=== PATIENT | female | born 1940 | race Two or more races ===

== ENCOUNTER 2016-03-26 20:12 | Emergency (ER) | payer MEDICARE, MEDICAID ==
[~2016-03-26] VITALS: Ht 154.9 cm; Wt 63.5 kg
[~2016-03-26 20:12] MED LIST: ASPI-495 PO; CLOP75TA2 PO; HYDR100T27 PO; LOSA1TAB39 PO; NEBI5TAB8 PO; NIFE60TA9 PO; OMEP20CA10 PO; SIMV20TA6 PO; SITA100T PO
[2016-03-26 20:41] LABS: BASOPHILS # (AUTO) 0.1 /CMM (0.0-0.2); BASOPHILS % (AUTO) 0.5 % (0.0-2.0); DIFF TOTAL % 100 %; EOSINOPHILS # (AUTO) 0.4 /CMM (0.0-0.7); EOSINOPHILS % (AUTO) 3.4 % (0.0-6.0); HEMATOCRIT 34 % (33-45); HEMOGLOBIN 11.6 g/dL (11.5-14.8); LYMPHOCYTES # (AUTO) 2.2 /CMM (0.8-4.8); LYMPHOCYTES % (AUTO) 19.6 % (20.0-44.0); MEAN CORPUSCULAR HEMOGLOBIN 29 PG (26.0-33.0); MEAN CORPUSCULAR HGB CONC 34 g/dl (31.0-36.0); MEAN CORPUSCULAR VOLUME 85 fL (82-100); MONOCYTES % (AUTO) 8.7 % (2.0-12.0); NEUTROPHILS # (AUTO) 7.6 /CMM (1.8-8.9); NEUTROPHILS % (AUTO) 67.8 % (43.0-81.0); PLATELET COUNT (AUTO) 310 /CMM (150-450); RED BLOOD CELL COUNT(AUTO) 3.96 MIL/uL (4.0-5.2); WHITE BLOOD COUNT (AUTO) 11.3 K/uL (4.3-11.0)
[2016-03-26 20:50] LABS: ANION GAP 16 (5-14); CALCIUM, SERUM 8.7 mg/dL (8.5-10.1); CARBON DIOXIDE 23 mmol/L (21-32); CHLORIDE 106 mmol/L (98-107); CREATININE 1.4 mg/dL (0.6-1.3); GLUCOSE 75 mg/dL (74-106); SODIUM SERUM 141 mmol/L (136-145); UREA NITROGEN, BLOOD 23 mg/dL (7-18)
[2016-03-26 20:54] LABS: INR 1.07 (0.87-1.13); PROTHROMBIN TIME 11.2 SECS (9.5-12.7)
[2016-03-26 20:56] LABS: ALANINE AMINOTRANSFERASE 16 U/L (12-78); ALBUMIN 3.3 g/dL (3.4-5.0); ASPARTATE AMINOTRANSFERASE 13 U/L (15-37); BILIRUBIN,TOTAL 0.2 mg/dL (0.2-1.0); TOTAL PROTEIN, SERUM 7.4 g/dL (6.4-8.2)
[2016-03-26 20:57] LABS: INDIRECT BILIRUBIN 0.2 mg/dL (0.0-1.1)
[2016-03-26 20:58] LABS: TROPONIN I < 0.017 ng/mL (0.00-0.056)
[2016-03-26 22:21] VITALS: BP 140/72
== END 2016-03-26 22:22 | disposition left against medical advice (07) ==
LOC: ER 20:13 → EDBD 20:13 → ER 22:22
DX: R00.2 Palpitations (principal); I10 Essential (primary) hypertension; E11.9 Type 2 diabetes mellitus without complications; R79.1 Abnormal coagulation profile; Z90.49 Acquired absence of other specified parts of digestive tract; Z79.82 Long term (current) use of aspirin
CPT/HCPCS: 36415; 71010; 80048; 80076; 84484; 85025; 85730; 93005; 99285; A4606; Z7610

== ENCOUNTER 2016-08-04 17:01 | Inpatient (IN) | payer MEDICARE, MEDICAID ==
[~2016-08-04] VITALS: Ht 152.4 cm; Wt 70.8 kg
--- NOTE | 2016-08-04 17:14 | NUR ---
BIB DTR FROM FROM FOR CHEST PALPITATION X 2 WEEKS WORST TODAY. PATIENT IS AWAKE, ALERT AND VERBALLY RESPONSIVE, APPEARS IN NO APPARENT DISTRESS, RESPIRATION EVEN AND UNLABORED. SKIN IS WARM TO TOUCH AND NON DIAPHORETIC. PATIENT IS AFEBRILE. DENIES D/N/V. GOWNED PT AND PLACED ON TELE MONITOR. VSS. WILL CONT TO MONITOR
[2016-08-04] MEDS ORDERED: ASPIRIN 325 MG TABLET ONE (17:20)
[2016-08-04] MEDS ORDERED: NITROGLYCERIN PACKET 1 GM PACKET ONE (17:20)
[2016-08-04] MEDS ORDERED: ASPIRIN 325 MG TABLET PO ONE (17:30)
[2016-08-04] MEDS ORDERED: NITROGLYCERIN PACKET 1 GM PACKET TD ONE (17:30)
--- NOTE | 2016-08-04 17:30 | NUR ---
MEDICATED PTIENT ODERED
--- NOTE | 2016-08-04 17:33 | NUR ---
CALLED NURSING SUP. FOR TELE BED
[2016-08-04 17:35] LABS: HEMATOCRIT 31 % (33-45); HEMOGLOBIN 10.2 g/dL (11.5-14.8); LYMPHOCYTES % (AUTO) 22.1 % (20.0-44.0); MEAN CORPUSCULAR HEMOGLOBIN 28 PG (26.0-33.0); MEAN CORPUSCULAR HGB CONC 33 g/dl (31.0-36.0); MEAN CORPUSCULAR VOLUME 84 fL (82-100); NEUTROPHILS % (AUTO) 64.5 % (43.0-81.0); PLATELET COUNT (AUTO) 256 /CMM (150-450); RDW COEFFICIENT OF VARIATION 15.9 (11.5-15.0); RED BLOOD CELL COUNT(AUTO) 3.65 MIL/uL (4.0-5.2); WHITE BLOOD COUNT (AUTO) 8.1 K/uL (4.3-11.0)
[2016-08-04 17:36] LABS: BASOPHILS % (AUTO) 0.6 % (0.0-2.0); EOSINOPHILS # (AUTO) 0.2 /CMM (0.0-0.7); EOSINOPHILS % (AUTO) 2.6 % (0.0-6.0); LYMPHOCYTES # (AUTO) 1.8 /CMM (0.8-4.8); MONOCYTES # (AUTO) 0.8 /CMM (0.1-1.30); MONOCYTES % (AUTO) 10.2 % (2.0-12.0); NEUTROPHILS # (AUTO) 5.2 /CMM (1.8-8.9)
--- NOTE | 2016-08-04 17:38 | NUR ---
IV ACCESSED TO [facility]. BLOOD SAMPLE SENT TO LAB
[2016-08-04 17:50] LABS: CALCIUM, SERUM 8.1 mg/dL (8.5-10.1); CARBON DIOXIDE 23 mmol/L (21-32); CHLORIDE 105 mmol/L (98-107); CREATININE 1.5 mg/dL (0.6-1.3); GLUCOSE 209 mg/dL (74-106); POTASSIUM 4.6 mmol/L (3.5-5.1); SODIUM SERUM 138 mmol/L (136-145); UREA NITROGEN, BLOOD 27 mg/dL (7-18)
[2016-08-04 17:53] LABS: TROPONIN I < 0.017 ng/mL (0.00-0.056)
[2016-08-04 17:55] LABS: ALANINE AMINOTRANSFERASE 22 U/L (12-78); ALBUMIN 3.2 g/dL (3.4-5.0); ALKALINE PHOSPHATASE 62 U/L (46-116); ASPARTATE AMINOTRANSFERASE 12 U/L (15-37); BILIRUBIN,DIRECT 0.1 mg/dL (0.0-0.2); BILIRUBIN,TOTAL 0.2 mg/dL (0.2-1.0); TOTAL PROTEIN, SERUM 7.4 g/dL (6.4-8.2)
[2016-08-04] MEDS ORDERED: ALEN70TA45 PO (17:58)
[2016-08-04] MEDS ORDERED: INSU3INS6 SQ (17:58)
[2016-08-04] MEDS ORDERED: OLME20TA15 PO (17:58)
[2016-08-04] MEDS ORDERED: INSU100I4 SQ (17:58)
[2016-08-04] MEDS ORDERED: ESOM40CA PO (17:58)
[2016-08-04] MEDS ORDERED: AMLO10TA2 PO (17:58)
[2016-08-04] MEDS ORDERED: ATOR40TA PO (17:58)
[2016-08-04 18:03] LABS: INR 1.06 (0.87-1.13); PROTHROMBIN TIME 11.4 SECS (9.5-12.7)
--- NOTE | 2016-08-04 18:18 | NUR ---
REPORT GIVEN TO VÍCTOR NAM FOR DMITRY
--- NOTE | 2016-08-04 18:21 | NUR ---
Patient is resting comfortably in bed with eyes closed. Easily aroused. VSS
--- NOTE | 2016-08-04 19:09 | NUR ---
KATLYN PAGED, BLINDSTITCH LAPEL PADDER
--- NOTE | 2016-08-04 19:10 | NUR ---
REPORT GIVEN TO NURSE SOSA FOR DMITRY
--- NOTE | 2016-08-04 19:24 | NUR ---
Note kristen in EDM - 08/04/16 at 1927 by RICKY BREATHING TX FINISHED. PT IS SATURATING AT 97% ON RA. PT STILL SOUNDS TIGHT. AUDIBLE WHEEZES NOTED.
--- NOTE | 2016-08-04 19:26 | NUR ---
[facility] REPAGED
[2016-08-04 19:40] VITALS: BP 147/71
[2016-08-04 20:00] VITALS: BP 147/71
--- NOTE | 2016-08-04 20:00 | NUR ---
[employer] LEAD[employer] ADMITTING NOTES: ADMITTED A 89 YO FEMALE PATIENT WHO WAS BROUGHT TO UNIT VIA GURNEY AFTER BEING SEEN IN THE ER FOR DIZZINESS, WITH ADMITTING DX OF INTRACTABLE VERTIGO. PATIENT IS AOX4, PALESTINIAN SPEAKING, ON ROOM AIR, BREATHING EVEN AND UNLABORED. BREATH SOUNDS CLEAR TO AUSCULTATION. PIV OVER LFA G 20 INTACT AND PATENT TO FLUSH. PATIENT ONLY COMPLAINS OF 2/10 SLIGHT PRESSURE LIKE PAIN OVER CHEST AREA, NON RADIATING. PROVIDED FOR COMFORT AND SAFETY. ORIENTED TO UNIT. WILL CONT TO MONITOR.
[2016-08-04] MEDS ORDERED: FUROSEMIDE 20 MG/2 ML VIAL IV SCH (21:00)
[2016-08-04] MEDS ORDERED: ONDANSETRON HCL/PF 4 MG/2 ML VIAL IVP PRN (21:00)
[2016-08-04] MEDS ORDERED: ACETAMINOPHEN 325 MG TABLET PO PRN (21:00)
[2016-08-04] MEDS ORDERED: DEXTROSE 50%-WATER 50 ML DISP.SYRIN IV PRN (21:00)
[2016-08-04] MEDS ORDERED: MORPHINE SULFATE INJ 2 MG/ML DISP.SYRIN IV PRN (21:00)
[2016-08-04] MEDS ORDERED: ALBUTEROL FS 2.5 MG/3 ML VIAL.NEB NEB PRN (21:00)
[2016-08-04] MEDS: hydrALAZINE HCL 50 MG TABLET PO SCH (21:38)
[2016-08-04] MEDS: BLOOD SUGAR DIAGNOSTIC 1 EACH STRIP IN SCH (21:38)
[2016-08-04] MEDS: ATORVASTATIN 40 MG TABLET PO SCH (21:38)
[2016-08-04] MEDS ORDERED: INSULIN REGULAR, HUMAN 100 UNIT/ML 10 ML VIAL ONE (21:44)
[2016-08-04] MEDS ORDERED: INSULIN DETEMIR 100 UNIT/ML CARTRIDGE SQ ONE (21:45)
[2016-08-04] MEDS: INSULIN DETEMIR 100 UNIT/ML CARTRIDGE SQ SCH (21:53)
[2016-08-04] MEDS: INSULIN REGULAR, HUMAN 100 UNIT/ML 3 ML VIAL SQ PRN (22:05)
--- NOTE | 2016-08-04 22:21 | NUR ---
RN NOTES: PATIENT'S BLOOD SUGAR IS 222 MG/DL, ADMINISTERED HS LEVEMIR 15 UNITS AND 4 UNITS REGULAR INSULIN PER SCALE, PATIENT EATING DINNER.
[2016-08-05] VITALS (8 sets, daily range): BP systolic 119–152; BP diastolic 55–73
[2016-08-05] MEDS ORDERED: Z GUARD REMEDY 2 OZ OINT TP PRN (02:00)
[2016-08-05] MEDS ORDERED: hydrALAZINE HCL 50 MG TABLET ONE (04:55)
[2016-08-05] MEDS: hydrALAZINE HCL 50 MG TABLET PO SCH ×3 (05:56→22:13)
--- NOTE | 2016-08-05 06:46 | NUR ---
CARBON GRINDER CLOSING NOTES: PATIENT IN BED, AOX4, ON ROOM AIR, BREATHING EVEN AND UNLABORED. BREATH SOUNDS CLEAR TO AUSCULTATION. ON TELE MONITOR WITH SR AT RATE OF 80S WITH FIRST DEG AVB. PIV OVER LFA G20 INTACT AND PATENT TO FLUSH. BLOOD SUGAR CHECKED AT 221 MG/DL. PROVIDED FOR COMFORT AND SAFETY. NO ACUTE CHANGE IN CONDITION NOTED THROUGH SHIFT. WILL ENDORSE TO AM RN FOR DMITRY.
[2016-08-05] MEDS: BLOOD SUGAR DIAGNOSTIC 1 EACH STRIP IN SCH ×4 (06:52→22:13)
--- NOTE | 2016-08-05 07:05 | NUR ---
GORING CUTTER OPENING NOTES RECEIVED PT. FROM NIGHTSHIFT NURSE IN STABLE CONDITION. PT. IS AWAKE, AND LYING COMFORTABLY IN BED. A/O X3. NO SOB OR SIGNS OF DISTRESS NOTED. BREATHING IS EVEN AND UNLABORED. DENIES ANY CHEST PAIN AT THIS TIME. IV PRESENT ON LEFT FOREARM PATENT TP SALINE FLUSH AND INTACT. NO REDNESS OR INFILTRATION NOTED. BED IN LOW LOCKED POSITION, SIDE RAILS UP X2, CALL LIGTH WITHIN REACH. WILL CONTINUE TO MONITOR.
[2016-08-05 07:12] LABS: BASOPHILS % (AUTO) 0.5 % (0.0-2.0); EOSINOPHILS # (AUTO) 0.2 /CMM (0.0-0.7); EOSINOPHILS % (AUTO) 4.3 % (0.0-6.0); HEMATOCRIT 31 % (33-45); HEMOGLOBIN 10.2 g/dL (11.5-14.8); LYMPHOCYTES # (AUTO) 1.5 /CMM (0.8-4.8); LYMPHOCYTES % (AUTO) 25.5 % (20.0-44.0); MEAN CORPUSCULAR HEMOGLOBIN 28 PG (26.0-33.0); MEAN CORPUSCULAR HGB CONC 33 g/dl (31.0-36.0); MEAN CORPUSCULAR VOLUME 86 fL (82-100); MONOCYTES # (AUTO) 0.6 /CMM (0.1-1.30); MONOCYTES % (AUTO) 9.9 % (2.0-12.0); NEUTROPHILS # (AUTO) 3.5 /CMM (1.8-8.9); NEUTROPHILS % (AUTO) 59.8 % (43.0-81.0); PLATELET COUNT (AUTO) 244 /CMM (150-450); RDW COEFFICIENT OF VARIATION 15.9 (11.5-15.0); WHITE BLOOD COUNT (AUTO) 5.8 K/uL (4.3-11.0)
--- NOTE | 2016-08-05 07:30 | NUR ---
RN NOTES: PATIENT'S BLOOD SUGAR IS 221, HOWEVER, SINCE PATIENT IS ADMITTED WITH CHEST PAIN, MAINTAINED ON NPO AFTER MIDNIGHT. REGULAR INSULIN COVERAGE NOT YET GIVEN. ENDORSED BLOOD SUGAR TO VÍCTOR CLARK.
[2016-08-05 07:37] LABS: TROPONIN I < 0.017 ng/mL (0.00-0.056)
[2016-08-05 07:41] LABS: ALANINE AMINOTRANSFERASE 22 U/L (12-78); ALBUMIN 2.9 g/dL (3.4-5.0); ALKALINE PHOSPHATASE 58 U/L (46-116); ASPARTATE AMINOTRANSFERASE 14 U/L (15-37); B-TYPE NATRIURETIC PEPTIDE 1140 PG/ML (0-125); BILIRUBIN,TOTAL 0.2 mg/dL (0.2-1.0); CALCIUM, SERUM 8.1 mg/dL (8.5-10.1); CARBON DIOXIDE 25 mmol/L (21-32); CHLORIDE 109 mmol/L (98-107); CREATININE 1.4 mg/dL (0.6-1.3); GLUCOSE 216 mg/dL (74-106); MAGNESIUM 2.1 mg/dL (1.8-2.4); PHOSPHORUS 3.3 mg/dL (2.5-4.9); POTASSIUM 4.8 mmol/L (3.5-5.1); SODIUM SERUM 143 mmol/L (136-145); TOTAL PROTEIN, SERUM 6.9 g/dL (6.4-8.2); UREA NITROGEN, BLOOD 26 mg/dL (7-18)
[2016-08-05 08:23] LABS: IRON, SERUM 94 ug/dl (50-175); TOTAL IRON BINDING CAPACITY 249 ug/dl (250-450)
[2016-08-05 08:26] LABS: CHOLESTEROL 185 mg/dL (<200); HDL CHOLESTEROL 43 mg/dL (40-60); LDL 95 mg/dL (0-99); THYROID STIMULATING HORMONE 3.262 uIU/mL (0.358-3.74); TRIGLYCERIDES 300 mg/dL (30-150)
[2016-08-05] MEDS: AMLODIPINE BESYLATE 10 MG TABLET PO SCH (08:54)
[2016-08-05] MEDS: ASPIRIN EC 81 MG TABLET.DR PO SCH (08:54)
[2016-08-05] MEDS: PANTOPRAZOLE 40 MG TABLET.DR PO SCH (08:55)
[2016-08-05] MEDS: CLOPIDOGREL BISULFATE 75 MG TABLET PO SCH (08:55)
[2016-08-05] MEDS: LINAGLIPTIN 5 MG TABLET PO SCH (08:55)
[2016-08-05] MEDS: INSULIN REGULAR, HUMAN 100 UNIT/ML 3 ML VIAL SQ PRN ×4 (08:57→22:20)
[2016-08-05] MEDS ORDERED: FUROSEMIDE 20 MG/2 ML VIAL IV SCH (09:00)
[2016-08-05] MEDS: FUROSEMIDE 40 MG/4 ML VIAL IV SCH ×3 (09:42→17:34)
--- NOTE | 2016-08-05 18:50 | NUR ---
SHRIMP PACKER CLOSING NOTES PT. IN STABLE CONDITION. NO ACUTE CHANGES IN CONDITION DURING SHIFT. DENIES ANY CHEST PAIN AT THIS TIME. ON TELE MONITOR WITH SR, 1ST DEGREE AV BLOCK, HR 85. ALL NEEDS MET DURING SHIFT ALL ORDERS CARRIED OUT ACCORDINGLY. WILL ENDORSE TO NIGHTSHIFT NURSE FOR DMITRY
--- NOTE | 2016-08-05 19:30 | NUR ---
RN NOTES RECEIVED PT AWAKE ON BED FAMILY AT BEDSIDE, A/OX3, TAJIK SPEAKING , SR WITH 1ST AV BLOCK, DENIES PAIN, NO SOB, CALL LIGHT WITHIN REACH, SIDERAILS UPX2 CONTINUE TO MONITOR
[2016-08-05] MEDS: ATORVASTATIN 40 MG TABLET PO SCH (22:14)
[2016-08-05] MEDS: INSULIN DETEMIR 100 UNIT/ML CARTRIDGE SQ SCH (22:19)
[2016-08-06] VITALS: BP 117/60
[2016-08-06 04:00] VITALS: BP 125/66
[2016-08-06] MEDS: hydrALAZINE HCL 50 MG TABLET PO SCH ×2 (05:00→12:16)
--- NOTE | 2016-08-06 05:52 | NUR ---
RN NOTES BLOOD SUGAR- 205 NO INSULIN COVERAGE GIVEN PT IS NPO
[2016-08-06 06:40] LABS: BASOPHILS % (AUTO) 0.2 % (0.0-2.0); EOSINOPHILS # (AUTO) 0.3 /CMM (0.0-0.7); EOSINOPHILS % (AUTO) 4.5 % (0.0-6.0); HEMATOCRIT 33 % (33-45); HEMOGLOBIN 11.3 g/dL (11.5-14.8); LYMPHOCYTES # (AUTO) 1.6 /CMM (0.8-4.8); MEAN CORPUSCULAR HEMOGLOBIN 29 PG (26.0-33.0); MEAN CORPUSCULAR HGB CONC 34 g/dl (31.0-36.0); MEAN CORPUSCULAR VOLUME 84 fL (82-100); MONOCYTES # (AUTO) 0.7 /CMM (0.1-1.30); MONOCYTES % (AUTO) 9.8 % (2.0-12.0); NEUTROPHILS # (AUTO) 4.4 /CMM (1.8-8.9); NEUTROPHILS % (AUTO) 62.5 % (43.0-81.0); PLATELET COUNT (AUTO) 275 /CMM (150-450); RDW COEFFICIENT OF VARIATION 15.5 (11.5-15.0); RED BLOOD CELL COUNT(AUTO) 3.96 MIL/uL (4.0-5.2); WHITE BLOOD COUNT (AUTO) 7.1 K/uL (4.3-11.0)
--- NOTE | 2016-08-06 07:00 | NUR ---
RN NOTES AWAKE DENIES PAIN, NO SOB
[2016-08-06 07:09] LABS: ALANINE AMINOTRANSFERASE 20 U/L (12-78); ALKALINE PHOSPHATASE 62 U/L (46-116); ASPARTATE AMINOTRANSFERASE 13 U/L (15-37); BILIRUBIN,TOTAL 0.2 mg/dL (0.2-1.0); CALCIUM, SERUM 8.9 mg/dL (8.5-10.1); CARBON DIOXIDE 25 mmol/L (21-32); CHLORIDE 102 mmol/L (98-107); CREATININE 1.5 mg/dL (0.6-1.3); GLUCOSE 211 mg/dL (74-106); MAGNESIUM 1.8 mg/dL (1.8-2.4); PHOSPHORUS 4.3 mg/dL (2.5-4.9); POTASSIUM 4.2 mmol/L (3.5-5.1); SODIUM SERUM 139 mmol/L (136-145); TOTAL PROTEIN, SERUM 7.3 g/dL (6.4-8.2); UREA NITROGEN, BLOOD 32 mg/dL (7-18)
[2016-08-06 07:18] LABS: TROPONIN I < 0.017 ng/mL (0.00-0.056)
[2016-08-06] MEDS: PANTOPRAZOLE 40 MG TABLET.DR PO SCH (07:30)
--- NOTE | 2016-08-06 07:30 | NUR ---
TRUCK RENTAL MANAGER AM NOTES PT IN BED, A/O X3. ON RA, NO SOB OR SIGNS OF DISTRESS NOTED. BREATHING IS EVEN AND UNLABORED. TELEMETRY READS SR IST DEG AVB HR 85, DENIES ANY CHEST PAIN AT THIS TIME. LEFT FA 20G FLUSHES WELL, SITE CLEAR. AMBULATORY, SEE NURSING FLOWSHEET FOR SKIN ISSUES. NPO FOR LEXISCAN TODAY. BED IN LOW LOCKED POSITION, SIDE RAILS UP X2, CALL LIGHT WITHIN REACH. WILL CONTINUE TO MONITOR.
[2016-08-06 08:00] VITALS: BP 130/69
[2016-08-06] MEDS: BLOOD SUGAR DIAGNOSTIC 1 EACH STRIP IN SCH ×2 (08:38→12:14)
[2016-08-06] MEDS: CLOPIDOGREL BISULFATE 75 MG TABLET PO SCH (08:39)
[2016-08-06] MEDS: AMLODIPINE BESYLATE 10 MG TABLET PO SCH (08:39)
[2016-08-06] MEDS: LINAGLIPTIN 5 MG TABLET PO SCH (08:39)
[2016-08-06] MEDS: ASPIRIN EC 81 MG TABLET.DR PO SCH (08:40)
--- NOTE | 2016-08-06 08:42 | NUR ---
PROJECT MANAGEMENT ADVISOR NOTES ACCUCHECK. BS 247 MG/DL. NO INSULIN GIVEN. PT IS NPO.
[2016-08-06] MEDS ORDERED: REGADENOSON 0.4 MG/5 ML DISP.SYRIN IVP ONE (09:00)
--- NOTE | 2016-08-06 09:30 | NUR ---
QUARRY PLUG AND FEATHER DRILLER NOTES BACK FROM [facility]. ADMINISTERED DUE MEDS.
[2016-08-06] MEDS ORDERED: FUROSEMIDE 40 MG TABLET PO SCH (10:00)
--- NOTE | 2016-08-06 12:23 | NUR ---
RUBBER WORKER NOTES ACCUCHECK. BS 349 MG/DL. ADMINISTERED 10 UNITSHUM R PER SLIDING SCALE.
[2016-08-06] MEDS: INSULIN REGULAR, HUMAN 100 UNIT/ML 3 ML VIAL SQ PRN (12:26)
[2016-08-06 16:30] VITALS: BP 128/79
--- NOTE | 2016-08-06 16:34 | NUR ---
HOOKER MACHINE TENDER DC NOTES PATIENT SEEN BY DR. SANTANA TODAY. DISCHARGED TO HOME PER MD IN STABLE CONDITION. PROVIDED DC INSTRUCTIONS, MED RECON LIST AND HEALTH TEACHINGS, IV ACCESS ON LEFT AC REMOVED, NO BLEEDING, DRESSING IN PLACE. ALL BELONGINGS CHECKED AND RETURNED. ALL PAPER WORKS SIGNED. PT TO FOLLOW UP WITH PCP IN 1-2 WEEKS AND WILL MAKE OWN APPOINTMENT. ACCOMPANIED BY DAUGHTER AND NATALIE FAYE TO [facility]. WILL BE TRANSPORTED TO HOME VIA PRIVATE CAR.
== END 2016-08-06 16:40 | disposition home or self-care (01) | DRG 291 ==
LOC: ER 17:03 → TELE 18:48
PROVIDERS: ADMIT Nurse Practitioner Acute Care; ATTEND Nurse Practitioner Acute Care
DX: I11.0 Hypertensive heart disease with heart failure (principal); N17.0 Acute kidney failure with tubular necrosis; I50.31 Acute diastolic (congestive) heart failure; I25.10 Atherosclerotic heart disease of native coronary artery without angina pectoris; K21.9 Gastro-esophageal reflux disease without esophagitis; E66.9 Obesity, unspecified; Z68.30 Body mass index [BMI] 30.0-30.9, adult; Z79.899 Other long term (current) drug therapy; Z90.49 Acquired absence of other specified parts of digestive tract; E11.65 Type 2 diabetes mellitus with hyperglycemia; D64.9 Anemia, unspecified
CPT/HCPCS: 36415; 71010-TC; 80048-TC; 80053-TC; 80061-TC; 80076-TC; 82728-TC; 82962-TC; 83540-TC; 83735-TC; 83880; 84100-TC; 84439-TC; 84443-TC; 84484-TC; 85025-TC; 85730-TC; 87081-TC; 93307-TC; 97001-TC; A4606; A9502; J1815; J1940; J2785; Z7610

== ENCOUNTER 2016-12-08 18:12 | Emergency (ER) | payer MEDICARE, MEDICAID ==
[~2016-12-08] VITALS: Ht 149.9 cm; Wt 72.6 kg
[~2016-12-08 18:12] MED LIST changes: +ALEN70TA45 PO; +AMLO10TA2 PO; +ATOR40TA PO; +ESOM40CA PO; +INSU100I4 SQ; +INSU3INS6 SQ; -LOSA1TAB39 PO; -NEBI5TAB8 PO; -NIFE60TA9 PO; +OLME20TA15 PO; -OMEP20CA10 PO; -SIMV20TA6 PO
--- NOTE | 2016-12-08 18:15 | NUR ---
BIB DAUGHTER, PT SENT FROM A CLINIC FOR HYPERTENSION AND HYPERGLYCEMIA 230MG/DL INSEAMER. NAD NOTED, VSS, RESP EVEN AND UNLABORED. WAITING FOR MD LOWE.
--- NOTE | 2016-12-08 18:30 | NUR ---
NEW IV STARTED ON R. WRIST, 20 G. BLOOD DRAWN AND SENT TO LAB.
[2016-12-08] MEDS ORDERED: CLONIDINE HCL 0.1 MG TABLET ONE (18:57)
[2016-12-08] MEDS ORDERED: CLONIDINE HCL 0.1 MG TABLET PO ONE (19:00)
[2016-12-08 19:05] LABS: BASOPHILS # (AUTO) 0.4 /CMM (0.0-0.2); BASOPHILS % (AUTO) 3.9 % (0.0-2.0); EOSINOPHILS # (AUTO) 0.3 /CMM (0.0-0.7); EOSINOPHILS % (AUTO) 2.6 % (0.0-6.0); HEMATOCRIT 32 % (33-45); HEMOGLOBIN 10.9 g/dL (11.5-14.8); LYMPHOCYTES # (AUTO) 2.4 /CMM (0.8-4.8); LYMPHOCYTES % (AUTO) 23.2 % (20.0-44.0); MEAN CORPUSCULAR HEMOGLOBIN 29 PG (26.0-33.0); MEAN CORPUSCULAR HGB CONC 34 g/dl (31.0-36.0); MEAN CORPUSCULAR VOLUME 85 fL (82-100); MONOCYTES # (AUTO) 0.8 /CMM (0.1-1.30); MONOCYTES % (AUTO) 7.5 % (2.0-12.0); NEUTROPHILS # (AUTO) 6.3 /CMM (1.8-8.9); NEUTROPHILS % (AUTO) 62.8 % (43.0-81.0); PLATELET COUNT (AUTO) 283 /CMM (150-450); RDW COEFFICIENT OF VARIATION 13.8 (11.5-15.0); WHITE BLOOD COUNT (AUTO) 10.2 K/uL (4.3-11.0)
[2016-12-08 19:27] LABS: CARBON DIOXIDE 24 mmol/L (21-32); CHLORIDE 107 mmol/L (98-107); CREATININE 1.4 mg/dL (0.6-1.3); GLUCOSE 206 mg/dL (74-106); POTASSIUM 5.1 mmol/L (3.5-5.1); SODIUM SERUM 141 mmol/L (136-145); UREA NITROGEN, BLOOD 31 mg/dL (7-18)
[2016-12-08] MEDS ORDERED: hydrALAZINE HCL IV 20 MG VIAL IV ONE (20:00)
[2016-12-08] MEDS ORDERED: hydrALAZINE HCL IV 20 MG VIAL ONE (20:08)
[2016-12-08 20:31] VITALS: BP 165/63
== END 2016-12-08 20:34 | disposition home or self-care (01) ==
LOC: ER 18:13
DX: I10 Essential (primary) hypertension (principal); E11.65 Type 2 diabetes mellitus with hyperglycemia; E78.00 Pure hypercholesterolemia, unspecified; I11.0 Hypertensive heart disease with heart failure; I50.9 Heart failure, unspecified; N28.9 Disorder of kidney and ureter, unspecified; Z79.4 Long term (current) use of insulin; Z79.82 Long term (current) use of aspirin
CPT/HCPCS: 36415; 80048; 82962; 85025; 96374; 99284; A4606; J0360; Z7610

== ENCOUNTER 2017-02-25 14:47 | Emergency (ER) | payer MEDICARE, MEDICAID ==
[~2017-02-25] VITALS: Ht 152.4 cm; Wt 81.6 kg
[~2017-02-25 14:47] MED LIST changes: +CLOP75TA15 PO; -CLOP75TA2 PO; -OLME20TA15 PO; +OLME20TA21 PO
[2017-02-25 14:50] VITALS: BP 189/76
== END 2017-02-25 15:11 | disposition home or self-care (01) ==
LOC: ER 14:53
DX: I11.0 Hypertensive heart disease with heart failure (principal); I50.9 Heart failure, unspecified; E11.9 Type 2 diabetes mellitus without complications; Z90.49 Acquired absence of other specified parts of digestive tract; Z79.4 Long term (current) use of insulin; Z79.82 Long term (current) use of aspirin
CPT/HCPCS: 99281; A4606; Z7502; Z7610

== ENCOUNTER 2017-08-05 09:11 | Inpatient (IN) | payer MEDICARE, MEDICAID ==
[~2017-08-05] VITALS: Ht 149.9 cm; Wt 68.9 kg
[~2017-08-05 09:11] MED LIST changes: -AMLO10TA2 PO; +AMLO10TA6 PO; +OLME20TA13 PO; -OLME20TA21 PO
--- NOTE | 2017-08-05 09:40 | NUR ---
PATIENT TO ED DT HIGH BLOOD PRESSURE X 7 DAYS. PATIENT IS AWAKE AND ALERT, APPEARS IN NO DISTRESS. RESPIRATION EVEN AND UNLABORED. SKIN IS WARM TO TOUCH AND NON DIAPHORETIC. AFEBRILE. VSS. NO CHEST PAIN.
[2017-08-05] MEDS ORDERED: hydrALAZINE HCL IV 20 MG VIAL ONE (09:49)
[2017-08-05] MEDS ORDERED: ASPIRIN 325 MG TABLET ONE (09:50)
[2017-08-05] MEDS ORDERED: NITROGLYCERIN PACKET 1 GM PACKET ONE (09:50)
[2017-08-05] MEDS ORDERED: NITROGLYCERIN PACKET 1 GM PACKET TD ONE (10:00)
[2017-08-05] MEDS ORDERED: ASPIRIN 325 MG TABLET PO ONE (10:00)
[2017-08-05] MEDS ORDERED: hydrALAZINE HCL IV 20 MG VIAL IV ONE (10:00)
[2017-08-05 10:01] LABS: BASOPHILS % (AUTO) 0.4 % (0.0-2.0); EOSINOPHILS % (AUTO) 3.3 % (0.0-6.0); HEMATOCRIT 35 % (33-45); HEMOGLOBIN 11.9 g/dL (11.5-14.8); LYMPHOCYTES # (AUTO) 1.7 /CMM (0.8-4.8); MEAN CORPUSCULAR HGB CONC 34 g/dl (31.0-36.0); MEAN CORPUSCULAR VOLUME 84 fL (82-100); MONOCYTES # (AUTO) 0.5 /CMM (0.1-1.30); MONOCYTES % (AUTO) 6.9 % (2.0-12.0); NEUTROPHILS # (AUTO) 5.4 /CMM (1.8-8.9); NEUTROPHILS % (AUTO) 68.4 % (43.0-81.0); PLATELET COUNT (AUTO) 272 /CMM (150-450); RED BLOOD CELL COUNT(AUTO) 4.21 MIL/uL (4.0-5.2); WHITE BLOOD COUNT (AUTO) 7.9 K/uL (4.3-11.0)
[2017-08-05] MEDS ORDERED: METO100T7 PO (10:04)
[2017-08-05] MEDS ORDERED: LOSA1TAB39 PO (10:04)
[2017-08-05 10:15] LABS: INR 1.03 (0.87-1.13)
--- NOTE | 2017-08-05 10:17 | NUR ---
panel on-call paged
[2017-08-05 10:19] LABS: ALANINE AMINOTRANSFERASE 15 U/L (12-78); ALBUMIN 3.2 g/dL (3.4-5.0); ALKALINE PHOSPHATASE 53 U/L (46-116); ASPARTATE AMINOTRANSFERASE 14 U/L (15-37); BILIRUBIN,DIRECT 0.1 mg/dL (0.0-0.2); BILIRUBIN,TOTAL 0.3 mg/dL (0.2-1.0); CALCIUM, SERUM 8.7 mg/dL (8.5-10.1); CARBON DIOXIDE 23 mmol/L (21-32); CHLORIDE 105 mmol/L (98-107); CREATININE 1.2 mg/dL (0.6-1.3); GLUCOSE 179 mg/dL (74-106); POTASSIUM 4.3 mmol/L (3.5-5.1); SODIUM SERUM 137 mmol/L (136-145); TOTAL PROTEIN, SERUM 7.3 g/dL (6.4-8.2); UREA NITROGEN, BLOOD 24 mg/dL (7-18)
[2017-08-05 10:20] LABS: TROPONIN I < 0.017 ng/mL (0.00-0.056)
[2017-08-05] MEDS ORDERED: DEXTROSE 50%-WATER 50 ML DISP.SYRIN IV PRN (11:00)
[2017-08-05] MEDS ORDERED: hydrALAZINE HCL IV 20 MG VIAL IV PRN (11:00)
[2017-08-05] MEDS ORDERED: HYDROCODONE/APAP 5/325MG 1 EACH TABLET PO PRN (11:00)
[2017-08-05] MEDS ORDERED: ZOLPIDEM TARTRATE 5 MG TABLET PO PRN (11:00)
[2017-08-05] MEDS ORDERED: MORPHINE SULFATE INJ 4 MG/ML DISP.SYRIN IV PRN (11:00)
[2017-08-05] MEDS ORDERED: ACETAMINOPHEN 325 MG TABLET PO PRN (11:00)
[2017-08-05] MEDS ORDERED: MAGNESIUM HYDROXIDE 30 ML UDC PO PRN (11:00)
[2017-08-05] MEDS ORDERED: MAG HYDROX/AL HYDROX/SIMETH 30 ML UDC PO PRN (11:00)
[2017-08-05] MEDS ORDERED: *INSULIN REGULAR(HUMULIN R)HUM 100 UNIT/ML VIAL SQ PRN (11:00)
[2017-08-05] MEDS ORDERED: Z GUARD REMEDY 2 OZ OINT TP PRN (11:00)
[2017-08-05] MEDS ORDERED: ONDANSETRON HCL/PF 4 MG/2 ML VIAL IVP PRN (11:00)
[2017-08-05] MEDS ORDERED: CLONIDINE HCL 0.1 MG TABLET PO PRN (11:00)
[2017-08-05 11:06] VITALS: BP 139/67
--- NOTE | 2017-08-05 11:07 | NUR ---
PATIENT TRANSPORTED TO TELE.S
--- NOTE | 2017-08-05 11:10 | NUR ---
GALLEY STRIPPER NOTES RECIEVED PT FROM ER VIA [place], SARITHA HTN URGENCY BY DR. HAMMER, AAO X 3, FINNISH SPEAKING, BASIA RA, NOT IN ANY DISTRESS, DENIES PAIN, TELEMETRY READS SR HR 60, RT WRIST G20 IVHL, FLUSHES WELL, SITE CLEAR, NO SKIN ISSUES, AMBULATES WITH ASSIST, DAUGHTER AT BEDSIDE, CARDIAC/DIABETIC DIET, UNIT ORIENTATION DONE AND USE OF CALL LIGHT, BED LOW LOCKED, SAFETY MEASURES IN PLACE, NEEDS ANTICIPATED. WILL CONT TO MONITOR.
[2017-08-05 12:00] VITALS: BP 136/58
[2017-08-05] MEDS ORDERED: NITROGLYCERIN 30 GM TUBE TOP SCH ×2 (12:00→17:00)
[2017-08-05] MEDS: BLOOD SUGAR DIAGNOSTIC 1 EACH STRIP VI SCH ×3 (12:04→21:29)
--- NOTE | 2017-08-05 12:05 | NUR ---
STRINGER MACHINE TENDER NOTES ACCUCHECK DONE. BS 164 MG/DL. 3 UNITS HUM R PER SS GIVEN.
[2017-08-05] MEDS: hydrALAZINE HCL 50 MG TABLET PO SCH ×2 (12:42→16:56)
[2017-08-05] MEDS: VALSARTAN 80 MG TABLET PO SCH (12:42)
[2017-08-05] MEDS: ENOXAPARIN SODIUM 30 MG/0.3 ML DISP.SYRIN SQ SCH (12:43)
[2017-08-05] MEDS: INSULIN REGULAR, HUMAN 100 UNIT/ML 3 ML VIAL SQ PRN ×2 (12:46→17:03)
[2017-08-05 16:00] VITALS: BP_SYST 115; BP_SYST 129; BP_DIAS 55; BP_DIAS 63
[2017-08-05] MEDS: METOPROLOL SUCCINATE 50 MG TAB.SR.24H PO SCH (16:57)
--- NOTE | 2017-08-05 17:00 | NUR ---
BIOLOGICAL AIDE NOTES ACCUCHECK DONE. BS 152 MG/DL. 2 UNITS HUM R PER SS GIVEN.
--- NOTE | 2017-08-05 19:15 | NUR ---
PER DIEM NURSE CLOSING NOTES PT RESTING COMFORTABLY IN BED, AAO X 3, CYMRO SPEAKING, ON RA, NOT IN ANY DISTRESS, DENIES PAIN, TELEMETRY READS SR HR 68, RT WRIST G20 IVHL, FLUSHES WELL, SITE CLEAR, NO SKIN ISSUES, AMBULATES WITH ASSIST, DAUGHTER AT BEDSIDE, CARDIAC/DIABETIC DIET, UNIT ORIENTATION DONE AND USE OF CALL LIGHT, BED LOW LOCKED, SAFETY MEASURES IN PLACE, ALL NEEDS MET. NO OTHER SIGNIFICANT CHANGE IN CONDITION. ENDORSED TO NEXT SHIFT FOR DMITRY.
[2017-08-05 20:00] VITALS: BP_SYST 147; BP_DIAS 57; BP_DIAS 66
[2017-08-05] MEDS: ATORVASTATIN 40 MG TABLET PO SCH (21:29)
[2017-08-06] VITALS: BP 126/72
[2017-08-06 04:04] VITALS: BP 122/45
[2017-08-06 06:18] LABS: BASOPHILS % (AUTO) 0.2 % (0.0-2.0); EOSINOPHILS % (AUTO) 2.1 % (0.0-6.0); HEMATOCRIT 32 % (33-45); LYMPHOCYTES # (AUTO) 1.7 /CMM (0.8-4.8); LYMPHOCYTES % (AUTO) 21.5 % (20.0-44.0); MEAN CORPUSCULAR HGB CONC 34 g/dl (31.0-36.0); MEAN CORPUSCULAR VOLUME 85 fL (82-100); MONOCYTES # (AUTO) 0.5 /CMM (0.1-1.30); MONOCYTES % (AUTO) 6.9 % (2.0-12.0); NEUTROPHILS # (AUTO) 5.3 /CMM (1.8-8.9); NEUTROPHILS % (AUTO) 69.3 % (43.0-81.0); PLATELET COUNT (AUTO) 249 /CMM (150-450); RDW COEFFICIENT OF VARIATION 15.5 (11.5-15.0); RED BLOOD CELL COUNT(AUTO) 3.81 MIL/uL (4.0-5.2); WHITE BLOOD COUNT (AUTO) 7.7 K/uL (4.3-11.0)
[2017-08-06 06:40] LABS: CHOLESTEROL 201 mg/dL (<200); HDL CHOLESTEROL 71 mg/dL (40-60); LDL 99 mg/dL (0-99); TRIGLYCERIDES 544 mg/dL (30-150)
[2017-08-06 06:47] LABS: TROPONIN I < 0.017 ng/mL (0.00-0.056)
[2017-08-06 06:48] LABS: ALANINE AMINOTRANSFERASE 15 U/L (12-78); ALBUMIN 2.7 g/dL (3.4-5.0); ALKALINE PHOSPHATASE 46 U/L (46-116); ASPARTATE AMINOTRANSFERASE 10 U/L (15-37); BILIRUBIN,TOTAL 0.2 mg/dL (0.2-1.0); CALCIUM, SERUM 8.6 mg/dL (8.5-10.1); CARBON DIOXIDE 27 mmol/L (21-32); CHLORIDE 104 mmol/L (98-107); CREATININE 1.2 mg/dL (0.6-1.3); GLUCOSE 207 mg/dL (74-106); MAGNESIUM 1.6 mg/dL (1.8-2.4); PHOSPHORUS 3.6 mg/dL (2.5-4.9); POTASSIUM 4.2 mmol/L (3.5-5.1); SODIUM SERUM 137 mmol/L (136-145); TOTAL PROTEIN, SERUM 6.4 g/dL (6.4-8.2); UREA NITROGEN, BLOOD 33 mg/dL (7-18)
--- NOTE | 2017-08-06 07:28 | NUR ---
RN NOTES RECEIVED PT FROM HUMAN FACTORS ERGONOMIST, A&0X3, PRIMARILY UPPER SORBIAN SPEAKING. ON ROOM AIR NO SOB OR DISTRESS NOTED. SR ON THE TELE KE[place] HR 77. R WRIST 20G IV SITE INTACT NO IVF. BED LOCKED AND IN LOWEST POSITION, CALL LIGHT WITHIN REACH, SIDE RAILS UPX3, WILL CONT TO [place].
[2017-08-06] MEDS: INSULIN REGULAR, HUMAN 100 UNIT/ML 3 ML VIAL SQ PRN ×3 (07:56→17:31)
[2017-08-06 08:00] VITALS: BP 172/60
[2017-08-06] MEDS: BLOOD SUGAR DIAGNOSTIC 1 EACH STRIP VI SCH ×4 (08:17→21:00)
[2017-08-06] MEDS: hydrALAZINE HCL 50 MG TABLET PO SCH ×3 (08:18→16:21)
[2017-08-06] MEDS: METOPROLOL SUCCINATE 50 MG TAB.SR.24H PO SCH ×2 (08:18→16:21)
[2017-08-06] MEDS: VALSARTAN 80 MG TABLET PO SCH (08:19)
[2017-08-06] MEDS: ASPIRIN EC 81 MG TABLET.DR PO SCH (08:19)
[2017-08-06] MEDS: CLOPIDOGREL BISULFATE 75 MG TABLET PO SCH (08:20)
[2017-08-06] MEDS: ENOXAPARIN SODIUM 30 MG/0.3 ML DISP.SYRIN SQ SCH (08:21)
[2017-08-06] MEDS: ISOSORBIDE DINITRATE (20MG) 20 MG TABLET PO SCH ×2 (08:24→16:21)
[2017-08-06 08:38] LABS: IRON, SERUM 45 ug/dl (50-175); TOTAL IRON BINDING CAPACITY 238 ug/dl (250-450)
[2017-08-06 08:55] LABS: FERRITIN 19 ng/mL (8-388)
[2017-08-06] MEDS ORDERED: LOSARTAN/HCTZ 50-12.5MG/ 1 EA TABLET PO SCH (09:00)
[2017-08-06] MEDS ORDERED: METOPROLOL SUCCINATE 50 MG TAB.SR.24H PO SCH (09:00)
[2017-08-06] MEDS: Magnesium 1GM/D5W 100ML PREMIX 100 ML IV SCH ×2 (09:11→10:08)
[2017-08-06 12:00] VITALS: BP 140/58
[2017-08-06 16:00] VITALS: BP 159/64
--- NOTE | 2017-08-06 16:03 | NUR ---
Patient speaks Dutch,she is alert and pleasant.She lives at home with family.She is ambulatory and semi-independent with adl's. Has good family support and daughter can provide ride when discharge. Addendum: 08/06/17 at 1603 by BHARATHI NEAL RN Amended: Links added.
[2017-08-06] MEDS ORDERED: METFORMIN 500 MG TABLET PO SCH (17:00)
[2017-08-06] MEDS ORDERED: METF-440 PO (17:30)
--- NOTE | 2017-08-06 17:40 | NUR ---
MS RN NOTES RECEIVED REPORT FROM DELTA RENEE. PATIENT RECEIVED RESTING INSIDE ROOM AWAKE, ALERT AND ORIENTED. VERBALLY RESPONSIVE AND RESPONDS TO VERBAL AND TACTILE STIMULI. BREATHING EVEN AND UNLABORED. NO SOB OR ACUTE DISTRESS NOTED. PATIENT DENIES ANY PAIN OR DISCOMFORT. PATIENT FOR NUCLEAR MED KIDNEY FLOW FUNCTION. NUCLEAR MEDICINE AWARE, AWAITING FOR PATIENT TO BE PICKED-UP. DAUGHTER AT BEDSIDE. WILL CONTINUE TO MONITOR. BED LOCKED AND IN LOW POSITION. BILATERAL UPPER SIDE RAILS UP AND LOCKED. CALL LIGHT WITHIN EASY REACH
--- NOTE | 2017-08-06 17:41 | NUR ---
RN NOTES CONSENT RECEIVED FROM DAUGHTER EVER FOR NUCLEAR MED SCAN. REPORT GIVEN TO RN FOR CONTINUITY OF CARE.
--- NOTE | 2017-08-06 18:47 | NUR ---
MS RN NOTES PATIENT RESTING INSIDE ROOM, AWAKE, ALERT AND ORIENTED X 4, VERBALLY RESPONSIVE AND RESPONDS TO VERBAL AND TACTILE STIMULI. BREATHING EVEN AND UNLABORED. NO SOB OR ACUTE DISTRESS NOTED. NO CHANGES IN LOC NOTED. PATIENT AFEBRILE, SKIN DRY AND WARM TO TOUCH. WAITING FOR NUCLEAR MEDICINE FOR PICK-UP, FILIBERTO FROM [place] AWARE. FAMILY AT BEDSIDE, PATIENT MADE AWARE AND VERBALIZED UNDERSTANDING. WILL ENDORSE TO INCOMING SHIFT FOR DMITRY. BED LOCKED AND IN LOW POSITION. BILATERAL UPPER SIDE RAILS UP AND LOCKED. CALL LIGHT WITHIN EASY REACH
--- NOTE | 2017-08-06 19:30 | NUR ---
RN NOTES: -RECEIVED ENDORSEMENT FROM YANA(RN) PATIENT IS FOR TRANSFER IN [facility] 2ND FLOOR ROOM 205-1. -AT AROUND 2100 PATIENT WAS SEND TO NUCLEAR MEDICINE DEPARTMENT FOR KIDNEY IMAGE SCAN. -ZORAIDA(RN/MARY0 SPOKE WITH FILIBERTO THEY WILL SEND THE PATIENT TO [facility]-2 AFTER THE PROCEDURE.
--- NOTE | 2017-08-06 20:02 | NUR ---
RN NOTES: GIVEN REPORT TO JOHANN(RN), ENDORSED PATIENT MEDICATION AND BELONGING.
[2017-08-06 20:45] VITALS: BP 163/70
--- NOTE | 2017-08-06 20:45 | NUR ---
MS RN NOTE: PATIENT BACK FROM NUCLEAR MEDICINE SCAN OF KIDNEYS. NO ACUTE DISTRESS NOTED. BREATHING EVEN AND UNLABORED, NO SOB NOTED. IV TO LFA IN PLACE. BED LOCKED AND IN LOWEST POSITION, CALL LIGHT IN REACH.
[2017-08-06] MEDS: ATORVASTATIN 40 MG TABLET PO SCH (21:00)
--- NOTE | 2017-08-06 21:15 | NUR ---
MS RN NOTE: PATIENT BLOOD SUGAR LEVEL 228MG/DL, PATIENT TO RECEIVE 4 UNITS PER SLIDING SCALE. NO S/S OF HYPER/HYPOGLYCEMIA NOTED. WILL CONTINUE TO MONITOR.
--- NOTE | 2017-08-07 06:15 | NUR ---
MS RN NOTE: PATIENT RESTING IN BED, NO ACUTE DISTRESS NOTED. BREATHING EVEN AND UNLABORED, NO SOB NOTED. IV TO LFA IN PLACE. PATIENT BLOOD SUGAR LEVEL 227 MG/DL, PATIENT TO RECEIVE 6 UNITS OF INSULIN PER SLIDING SCALE. NO S/S HYPER/HYPOGLYCEMIA NOTED. BED LOCKED AND IN LOWEST POSITION, CALL LIGHT IN REACH. WILL ENDORSE TO DAY NURSE TO CONTINUE WITH PLAN OF CARE.
[2017-08-07] MEDS: BLOOD SUGAR DIAGNOSTIC 1 EACH STRIP VI SCH ×2 (06:36→12:19)
[2017-08-07] MEDS: INSULIN REGULAR, HUMAN 100 UNIT/ML 3 ML VIAL SQ PRN ×2 (06:36→12:16)
[2017-08-07 06:39] LABS: BASOPHILS % (AUTO) 0.1 % (0.0-2.0); EOSINOPHILS % (AUTO) 3.3 % (0.0-6.0); HEMATOCRIT 34 % (33-45); HEMOGLOBIN 11.1 g/dL (11.5-14.8); LYMPHOCYTES % (AUTO) 27.4 % (20.0-44.0); MEAN CORPUSCULAR HGB CONC 33 g/dl (31.0-36.0); MEAN CORPUSCULAR VOLUME 85 fL (82-100); MONOCYTES # (AUTO) 0.6 /CMM (0.1-1.30); MONOCYTES % (AUTO) 7.8 % (2.0-12.0); NEUTROPHILS # (AUTO) 4.4 /CMM (1.8-8.9); NEUTROPHILS % (AUTO) 61.4 % (43.0-81.0); PLATELET COUNT (AUTO) 269 /CMM (150-450); RDW COEFFICIENT OF VARIATION 15.5 (11.5-15.0); RED BLOOD CELL COUNT(AUTO) 3.94 MIL/uL (4.0-5.2); WHITE BLOOD COUNT (AUTO) 7.2 K/uL (4.3-11.0)
[2017-08-07 06:50] LABS: CALCIUM, SERUM 8.9 mg/dL (8.5-10.1); CARBON DIOXIDE 27 mmol/L (21-32); CHLORIDE 104 mmol/L (98-107); CREATININE 1.5 mg/dL (0.6-1.3); GLUCOSE 216 mg/dL (74-106); MAGNESIUM 2.6 mg/dL (1.8-2.4); PHOSPHORUS 3.9 mg/dL (2.5-4.9); POTASSIUM 4.8 mmol/L (3.5-5.1); SODIUM SERUM 140 mmol/L (136-145); UREA NITROGEN, BLOOD 37 mg/dL (7-18)
--- NOTE | 2017-08-07 07:32 | NUR ---
MS RN OPENING NOTES RECEIVED PT FROM NIGHTSHIFT NURSE IN STABLE CONDITION. PT IS A/O X3. NO SOB OR SIGNS OF DISTRESS NOTED. BREATHING IS EVEN AND UNLABORED. PT'S BP REMAINS ELEVATED. IT IS CURRENTLY 174/74. WILL ADMINISTER SCHEDULED BP MEDICATIONS. SHE DENIES ANY ASSOCIATED HEADACHE. IV NOTED TO BE PATENT AND INTACT. NO REDNESS OR SIGNS OF INFILTRATION NOTED. BED IN LOW LOCKED POSITION, SIDE RAILS UP X2, CALL LIGHT WITHIN REACH. WILL CONTINUE TO MONITOR
[2017-08-07 08:00] VITALS: BP 174/74
[2017-08-07] MEDS: ENOXAPARIN SODIUM 30 MG/0.3 ML DISP.SYRIN SQ SCH (08:51)
[2017-08-07] MEDS: ASPIRIN EC 81 MG TABLET.DR PO SCH (08:54)
[2017-08-07] MEDS: METOPROLOL SUCCINATE 50 MG TAB.SR.24H PO SCH (08:54)
[2017-08-07] MEDS: CLOPIDOGREL BISULFATE 75 MG TABLET PO SCH (08:54)
[2017-08-07] MEDS: ISOSORBIDE DINITRATE (20MG) 20 MG TABLET PO SCH (08:55)
[2017-08-07] MEDS: hydrALAZINE HCL 50 MG TABLET PO SCH ×2 (08:55→12:17)
[2017-08-07] MEDS: VALSARTAN 80 MG TABLET PO SCH (08:55)
[2017-08-07] MEDS ORDERED: CLONIDINE HCL 0.1MG/24H PTWK 1 EA PATCH TD SCH (10:30)
[2017-08-07] MEDS ORDERED: AMLODIPINE BESYLATE 5 MG TABLET PO SCH (10:30)
[2017-08-07 12:17] VITALS: BP 145/69
[2017-08-07] MEDS ORDERED: VALS80TA2 PO (16:00)
[2017-08-07] MEDS ORDERED: HYDR-4077 PO (16:00)
[2017-08-07] MEDS ORDERED: CLON1PAT TD (16:02)
--- NOTE | 2017-08-07 17:21 | NUR ---
MS BRAKE DRUM MOLDER NOTES PT WAS DISCHARGED FROM FACILITY IN STABLE CONDITION. ALL NEEDS WERE MET DURING SHIFT AND ORDERS CARRIED OUT ACCORDINGLY. ALL DUE MEDS GIVEN. IV SUCCESSFULLY REMOVED WITH NO COMPLICATIONS. NUCLEAR MED RESULTS REVIEWED WITH MD PRIOR TO D/C. PRESCRIPTIONS REVIEWED WITH PT AND FAMILY ALONG WITH ALL DISCHARGE INSTRUCTIONS. CASE MANAGEMENT MADE AWARE THAT PT WILL NEED A F/U APPOINTMENT WITH DR. HAMMER FOR WEDNESDAY HOWEVER SHE AWAY FROM HER OFFICE AND UNABLE TO PROVIDE PAPERWORK. A NUMBER WAS PROVIDED TO TO CALL THE PT AND GIVE HER THE DETAILS TO HER F/U APPOINTMENT. PT AND SON VERBALIZED UNDERSTANDING OF ALL D/C INSTRUCTIONS AND SIGNED ALL PAPERWORK. SHE WAS SAFELY ESCORTED TO THE MAIN LOBBY BY THE WIENER PACKER AND LEFT VIA PRIVATE VEHICLE.
== END 2017-08-07 16:50 | disposition home or self-care (01) | DRG 304 ==
LOC: ER 09:14 → TELE1 10:55 → MEDSG1 08-06 10:04 → MEDSG2 08-06 20:04
PROVIDERS: ADMIT Internal Medicine; ATTEND Internal Medicine
DX: I16.0 Hypertensive urgency (principal); E43 Unspecified severe protein-calorie malnutrition; N17.9 Acute kidney failure, unspecified; I50.32 Chronic diastolic (congestive) heart failure; E88.09 Other disorders of plasma-protein metabolism, not elsewhere classified; E11.22 Type 2 diabetes mellitus with diabetic chronic kidney disease; I13.0 Hypertensive heart and chronic kidney disease with heart failure and stage 1 through stage 4 chronic kidney disease, or unspecified chronic kidney disease; E66.9 Obesity, unspecified; K21.9 Gastro-esophageal reflux disease without esophagitis; Z68.30 Body mass index [BMI] 30.0-30.9, adult; R07.9 Chest pain, unspecified; N18.9 Chronic kidney disease, unspecified; Z79.4 Long term (current) use of insulin; I70.1 Atherosclerosis of renal artery
CPT/HCPCS: 36415; 71045-TC; 78707-TC; 80048-TC; 80053-TC; 80061-TC; 80076-TC; 82728-TC; 82962-TC; 83540-TC; 83735-TC; 84100-TC; 84484-TC; 85025-TC; 85730-TC; 87081-TC; 93307-TC; A4606; A9562; J0360; J1650; J1815; J3475; J7040; Z7610

== ENCOUNTER 2017-08-09 12:42 | Outpatient (CLI) | payer MEDICARE, MEDICAID ==
[~2017-08-09 12:42] MED LIST changes: -AMLO10TA6 PO; +CLON1PAT TD; -ESOM40CA PO; +HYDR-4077 PO; -HYDR100T27 PO; -INSU100I4 SQ; +LOSA1TAB39 PO; +METO100T7 PO; -OLME20TA13 PO; -SITA100T PO; +VALS80TA2 PO
[2017-08-09 12:49] VITALS: BP 155/60
== END 2017-08-09 23:59 | disposition home or self-care (01) ==
LOC: MSC 12:42
PROVIDERS: ATTEND Internal Medicine
DX: I11.0 Hypertensive heart disease with heart failure (principal); I50.32 Chronic diastolic (congestive) heart failure; I73.9 Peripheral vascular disease, unspecified; Z95.828 Presence of other vascular implants and grafts; E66.8 Other obesity; E11.9 Type 2 diabetes mellitus without complications; Z79.4 Long term (current) use of insulin; E43 Unspecified severe protein-calorie malnutrition; E88.09 Other disorders of plasma-protein metabolism, not elsewhere classified; K21.9 Gastro-esophageal reflux disease without esophagitis; Z79.82 Long term (current) use of aspirin

== ENCOUNTER 2017-12-20 19:27 | Inpatient (IN) | payer MEDICARE, MEDICAID ==
[~2017-12-20] VITALS: Ht 152.4 cm; Wt 65.3 kg
[2017-12-20] MEDS ORDERED: ONDANSETRON HCL/PF 4 MG/2 ML VIAL ONE (20:19)
[2017-12-20] MEDS ORDERED: ONDANSETRON HCL/PF 4 MG/2 ML VIAL IVP ONE (20:30)
--- NOTE | 2017-12-20 20:35 | NUR ---
BIB FAMILY C/O HIGH BLOOD PRESSURE WITH N/V AND HEADACHES X 3 DAYS WITH PRESSURE LIKE CP ON THE LEFT SIDE NON RADIATING. +BLURRED VISION X 1 WK, LAST BP MEDICATION TAKEN 5PM; LORSARTAN 100-25MG. SKIN WNL. PT IS AAOX4, GUYANESE SPEAKING ONLY. NO S/S OF ACUTE DISTRESS NOTED. RR EVEN AND UNLABORED. PT PLACED ON AUTOMATIC CORN GRINDER OPERATOR AND POX. PT'S FAMILY BEDSIDE. BEDSIDE FOR EVAL
[2017-12-20 20:53] LABS: BASOPHILS % (AUTO) 0.2 % (0.0-2.0); EOSINOPHILS % (AUTO) 2.3 % (0.0-6.0); HEMATOCRIT 36 % (33-45); HEMOGLOBIN 12.2 g/dL (11.5-14.8); LYMPHOCYTES # (AUTO) 1.8 /CMM (0.8-4.8); LYMPHOCYTES % (AUTO) 16.3 % (20.0-44.0); MEAN CORPUSCULAR HGB CONC 34 g/dl (31.0-36.0); MEAN CORPUSCULAR VOLUME 86 fL (82-100); MONOCYTES # (AUTO) 0.6 /CMM (0.1-1.30); MONOCYTES % (AUTO) 5.1 % (2.0-12.0); NEUTROPHILS # (AUTO) 8.3 /CMM (1.8-8.9); NEUTROPHILS % (AUTO) 76.1 % (43.0-81.0); PLATELET COUNT (AUTO) 311 /CMM (150-450); RDW COEFFICIENT OF VARIATION 14.1 (11.5-15.0)
[2017-12-20 20:58] LABS: INR 1.06 (0.85-1.15)
[2017-12-20] MEDS ORDERED: hydrALAZINE HCL IV 20 MG VIAL IV ONE (21:00)
[2017-12-20 21:01] LABS: ALANINE AMINOTRANSFERASE 17 U/L (12-78); ALBUMIN 3.5 g/dL (3.4-5.0); ALKALINE PHOSPHATASE 72 U/L (46-116); ASPARTATE AMINOTRANSFERASE 12 U/L (15-37); CALCIUM, SERUM 8.8 mg/dL (8.5-10.1); CARBON DIOXIDE 26 mmol/L (21-32); CHLORIDE 105 mmol/L (98-107); CREATININE 1.4 mg/dL (0.6-1.3); GLUCOSE 205 mg/dL (74-106); POTASSIUM 5.1 mmol/L (3.5-5.1); SODIUM SERUM 138 mmol/L (136-145); TOTAL PROTEIN, SERUM 7.6 g/dL (6.4-8.2); UREA NITROGEN, BLOOD 26 mg/dL (7-18)
[2017-12-20] MEDS ORDERED: hydrALAZINE HCL IV 20 MG VIAL ONE (21:05)
[2017-12-20 21:14] LABS: TROPONIN I 0.037 ng/mL (0.00-0.056)
[2017-12-20 21:15] LABS: BILIRUBIN,TOTAL 0.2 mg/dL (0.2-1.0)
[2017-12-20] MEDS ORDERED: Z GUARD REMEDY 2 OZ OINT TP PRN (22:30)
[2017-12-20] MEDS ORDERED: ACETAMINOPHEN 325 MG TABLET PO PRN (22:30)
[2017-12-20] MEDS ORDERED: ZOLPIDEM TARTRATE 5 MG TABLET PO PRN (22:30)
[2017-12-20] MEDS ORDERED: ONDANSETRON HCL/PF 4 MG/2 ML VIAL IVP PRN (22:30)
[2017-12-20] MEDS ORDERED: HYDROCODONE/APAP 5/325MG 1 EACH TABLET PO PRN (22:30)
[2017-12-20] MEDS ORDERED: MAGNESIUM HYDROXIDE 30 ML UDC PO PRN (22:30)
[2017-12-20] MEDS ORDERED: MAG HYDROX/AL HYDROX/SIMETH 30 ML UDC PO PRN (22:30)
--- NOTE | 2017-12-20 23:49 | NUR ---
REPORT GIVEN TO OPLLO MOORE FOR DMITRY
[2017-12-21] VITALS (10 sets, daily range): BP systolic 119–169; BP diastolic 35–81
--- NOTE | 2017-12-21 00:20 | NUR ---
RN ALMITA ADMISSION, RECEIVED PATIENT FROM ER DEPARTMENT VIA STRETCHER ACCOMPANIED BY 3 NURSES AND SON, UNDER MEDICAL SERVICES OF DR MAX WAN MD, WITH ADMITTING DX OF HYPERTENSIVE EMERGENCY, WITH H/O HTN, DM, H/O CHOLECYSTECTOMY, ALERT AND ORIENTED X4 ABLE TO VERBALIZE NEEDS AND CONCERNS IN LITHUANIAN, BREATHING EVEN AND UNLABORED, NO SOB/ACUTE DISTRESS NOTED AT THIS TIME, NO DISCOMFORT, DENIES DIZZINESS, NAUSEA, OR HEADACHE AT THIS TIME, AFEBRILE, SKIN INTACT, ALL NEEDS PROVIDED, PATIENT PLACED ON TELE MONITOR SR IN THE 70S AT THIS TIME, WILL CONTINUE TO MONITOR CLOSELY.
--- NOTE | 2017-12-21 00:30 | NUR ---
RN ALMITA NOTES, NOTED PATIENT WITH BP 170/40, WILL RETAKE IT AGAIN SINCE IN ER 156/58, AND SON ALSO STATED THAT BP WAS JUST IN THE 150S.
--- NOTE | 2017-12-21 00:50 | NUR ---
RN ALMITA NOTES, RECHECK BP AT THIS TIME AND STILL 160/45, CALLED PHARMACY ORTHOTIC/PROSTHETIC CLINICIAN AWAITING FOR PHARMACY TO VERIFY MEDICATION.
--- NOTE | 2017-12-21 01:30 | NUR ---
RN ALMITA NOTES, CALLED AGAIN PHARMACY TO VERIFY CLONIDINE.
[2017-12-21] MEDS: CLONIDINE HCL 0.1 MG TABLET PO PRN (01:45)
--- NOTE | 2017-12-21 02:30 | NUR ---
RN ALMITA NOTES, CLONIDINE 0.IMG ADMINISTRATED ORDERED AT 0145 , AND BP AFTER 40MIN 123/48, WILL CONTINUE TO MONITOR CLOSELY.
--- NOTE | 2017-12-21 07:00 | NUR ---
RN ALMITA NOTES, PATIENT SLEEPING AT THIS TIME, SR IN THE TELE MONITOR INT HE 70S, BREATHING EVEN AND UNLABORED, NO SOB/ACUTE DISTRESS NOTED AT THIS TIME, NO DISCOMFORT, DENIES DIZZINESS, NAUSEA, OR HEADACHE AT THIS TIME, PIV ACCESS IN RIGHT HAND INTACT AND PATENT, AFEBRILE, SKIN INTACT, WITH EPISODE OF HYPERTENSION DURING THIS SHIFT, CLONIDINE GIVEN ORDERED, AFTER THAT BP 123/48, AND REMAINED STABLE BP TILL NOW, ALL NEEDS PROVIDED, PATIENT PLACED ON TELE MONITOR SR IN THE 70S AT THIS TIME, WILL ENDORSE CONTINUITY OF CARE TO ONCOMING NURSE.
--- NOTE | 2017-12-21 07:45 | NUR ---
ALMITA RN NOTE PATIENT IN BED RESTING COMFORTABLY ALERT ORIENTED X3 , SPEAKS [place] . ON TELE MONITOR SR , ASSISTED TO BR , RT HAND FIDENCIO 22 INTACT NO S\INFECTION NOTED, NO SOB NOTED NO SOB AT THIS TIME WILL CONT TO MONITOR CLOSELY ,BED IN LOWEST AND LOCKED POSITION , PLAN OF CARE DISUSED WITH PATIENT
[2017-12-21] MEDS: PANTOPRAZOLE 40 MG TABLET.DR PO SCH (08:05)
[2017-12-21] MEDS: CLOPIDOGREL BISULFATE 75 MG TABLET PO SCH (08:05)
[2017-12-21] MEDS: ASPIRIN EC 81 MG TABLET.DR PO SCH (08:06)
[2017-12-21] MEDS: VALSARTAN 80 MG TABLET PO SCH ×2 (08:10→09:00)
[2017-12-21] MEDS: hydrALAZINE HCL 50 MG TABLET PO SCH ×3 (08:11→17:02)
[2017-12-21 08:19] LABS: BASOPHILS % (AUTO) 0.4 % (0.0-2.0); EOSINOPHILS % (AUTO) 2.3 % (0.0-6.0); HEMATOCRIT 33 % (33-45); HEMOGLOBIN 10.5 g/dL (11.5-14.8); LYMPHOCYTES # (AUTO) 1.6 /CMM (0.8-4.8); LYMPHOCYTES % (AUTO) 20.9 % (20.0-44.0); MEAN CORPUSCULAR HGB CONC 32 g/dl (31.0-36.0); MEAN CORPUSCULAR VOLUME 88 fL (82-100); MONOCYTES # (AUTO) 0.5 /CMM (0.1-1.30); MONOCYTES % (AUTO) 7.2 % (2.0-12.0); NEUTROPHILS # (AUTO) 5.2 /CMM (1.8-8.9); NEUTROPHILS % (AUTO) 69.2 % (43.0-81.0); PLATELET COUNT (AUTO) 284 /CMM (150-450); RDW COEFFICIENT OF VARIATION 15.4 (11.5-15.0); RED BLOOD CELL COUNT(AUTO) 3.75 MIL/uL (4.0-5.2); WHITE BLOOD COUNT (AUTO) 7.6 K/uL (4.3-11.0)
[2017-12-21 08:41] LABS: B-TYPE NATRIURETIC PEPTIDE 2790 PG/ML (0-125); CALCIUM, SERUM 8.8 mg/dL (8.5-10.1); CARBON DIOXIDE 26 mmol/L (21-32); CHLORIDE 106 mmol/L (98-107); CREATININE 1.5 mg/dL (0.6-1.3); GLUCOSE 194 mg/dL (74-106); MAGNESIUM 1.6 mg/dL (1.8-2.4); PHOSPHORUS 3.4 mg/dL (2.5-4.9); POTASSIUM 5.4 mmol/L (3.5-5.1); SODIUM SERUM 139 mmol/L (136-145); UREA NITROGEN, BLOOD 27 mg/dL (7-18)
[2017-12-21] MEDS: METOPROLOL TARTRATE 25 MG TABLET PO SCH ×3 (09:00→21:29)
[2017-12-21 09:11] LABS: CHOLESTEROL 178 mg/dL (<200); TRIGLYCERIDES 303 mg/dL (30-150)
[2017-12-21 09:12] LABS: HDL CHOLESTEROL 46 mg/dL (40-60); LDL 96 mg/dL (0-99); THYROID STIMULATING HORMONE 2.453 uIU/mL (0.358-3.74)
--- NOTE | 2017-12-21 09:33 | NUR ---
ALMITA RN NOTE GIVEN ALL BP MEDS ORDERED
[2017-12-21] MEDS ORDERED: Magnesium 1GM/D5W 100ML PREMIX 100 ML IV SCH (11:00)
--- NOTE | 2017-12-21 12:00 | NUR ---
ALMITA RN NOTE 2D ECHO DONE ORDERED ,SON AT BEDSIDE
--- NOTE | 2017-12-21 15:00 | NUR ---
ALMITA RN NOTE SPOKE WITH EDDIE MONTANO DNP NOTIFIED THAT K 5.4 A STATED THAT WILL CHECK IT OUT ALSO NOTIFIED THAT PATIENT HAS HX OD DM NO ORDER ACCU CHECK STATED THAT WILL ORDER , WILL F\U
--- NOTE | 2017-12-21 17:00 | NUR ---
ALMITA RN NOTE EDDIE MONTANO DNP AWARE THAT BNP 2453 , STATED WILL CHECK IT OUT
[2017-12-21] MEDS: BLOOD SUGAR DIAGNOSTIC 1 EACH STRIP IN SCH ×2 (17:56→21:26)
[2017-12-21] MEDS: INSULIN REGULAR, HUMAN 100 UNIT/ML 3 ML VIAL SQ PRN ×2 (17:58→21:28)
[2017-12-21] MEDS ORDERED: FUROSEMIDE 20 MG/2 ML VIAL IV ONE (18:00)
[2017-12-21] MEDS ORDERED: DEXTROSE 50%-WATER 50 ML DISP.SYRIN IV PRN (18:00)
--- NOTE | 2017-12-21 18:27 | NUR ---
ALMITA RN NOTE LAIC WAS GIVEN ORDERED , FAMILY AT BEDSIDE, WILL CONT TO MONITOR CLOSELY
--- NOTE | 2017-12-21 19:35 | NUR ---
TD RN NOTES RECEIVED PT ON BED. A/O X4 AUSTRIAN SPEAKING. ON ROOM AIR SATURATING WELL. ON TELE MONITOR SR 80. IV ACCESS ON 22G RIGHT HAND, SALINE LOCK. HEAD OF BED ELEVATED. SIDE RAILS UP. CALL LIGHT WITHIN REACH. BED ALARM ON. WILL CONTINUE TO MONITOR PT CLOSELY.
[2017-12-21] MEDS ORDERED: ATORVASTATIN 40 MG TABLET PO SCH (22:00)
[2017-12-21] MEDS ORDERED: INSULIN GLARGINE, 100 UNIT/ML CARTRIDGE SQ SCH (22:00)
[2017-12-22] VITALS: BP 127/49
[2017-12-22 04:00] VITALS: BP 149/49
[2017-12-22] MEDS ORDERED: ALENDRONATE 70 MG TABLET PO SCH (07:00)
--- NOTE | 2017-12-22 07:21 | NUR ---
TD RN NOTES NO ACUTE CHANGES NOTED DURING THE SHIFT. PROVIDED COMFORT AND SAFETY. DUE MEDS GIVEN. WILL ENDORSE TO THE AM NURSE FOR CONTINUITY OF CARE.
--- NOTE | 2017-12-22 08:02 | NUR ---
RN NOTES RECEIVED PATIENT SITTING AT BEDSIDE CHAIR, ALERT AND OREINTEDX4, ABLE TO COMMUNICATE BUT ABLE TO EXPRESS SELF MORE IN CHADIAN, ON ROOM AIR, SATURATING WELL ON 98%, SINUS RHYTHM HR AT 86BPM ON TELE, DENIES ANY KIND OF PAIN, AMBULATORY,G 22 IVL ON THE RIGHT HAND: SALINE LOCK. ENCOURAGE TO CALL FOR ASSISTANCE, CALL LIGHT WITHIN EASY REACH. WILL CONTINUE TO MONITOR AND ASSESS PATIENT
[2017-12-22] MEDS: BLOOD SUGAR DIAGNOSTIC 1 EACH STRIP IN SCH ×2 (08:32→12:14)
[2017-12-22] MEDS: INSULIN REGULAR, HUMAN 100 UNIT/ML 3 ML VIAL SQ PRN ×2 (08:33→12:14)
[2017-12-22] MEDS: CLOPIDOGREL BISULFATE 75 MG TABLET PO SCH (08:34)
[2017-12-22] MEDS: ASPIRIN EC 81 MG TABLET.DR PO SCH (08:34)
[2017-12-22] MEDS: PANTOPRAZOLE 40 MG TABLET.DR PO SCH (08:34)
[2017-12-22] MEDS: hydrALAZINE HCL 50 MG TABLET PO SCH ×2 (08:35→12:15)
[2017-12-22] MEDS: VALSARTAN 80 MG TABLET PO SCH (08:36)
[2017-12-22] MEDS: METOPROLOL TARTRATE 25 MG TABLET PO SCH (08:36)
--- NOTE | 2017-12-22 10:00 | NUR ---
RN NOTES SEEN AND EXAMINED BY Navya GALINDO DNP. WITH NO NEW ORDERS AT THIS TIME.
--- NOTE | 2017-12-22 11:11 | NUR ---
RN NOTES OBTAINED ORDER FOR DISCHARGE FROM MD. ORDER NOTED AND CARRIED OUT. INFORMED PATIENT ABOUT DISCHARGE, PER PATIENT SHE'LL EAT LUNCH THEN GO.
[2017-12-22] MEDS: CLONIDINE HCL 0.1 MG TABLET PO PRN (11:39)
[2017-12-22 12:15] VITALS: BP 177/48
--- NOTE | 2017-12-22 13:30 | NUR ---
RN NOTES PATIENT DISCHARGE. EXIT CARE DONE. OFFERED PNEUMONIA AND FLU VACCINE, PER PATIENT SHE GOT PNEUMONIA VACCINE LESS THAN 2 YEARS AGO AND FLU VACCINE 2 WEEKS AGO. ALL QUESTION AND CONCERNS ADDRESSED APPROPRIATELY. DISCHARGE AND MEDICATION INSTRUCTION GIVEN TO PATIENT, SON AT BEDSIDE TO TRANSLATE. ALL BELONGINGS ACCOUNTED RETURNED AND WORN BY THE PATIENT. PATIENT REFUSED USE OF WHEELCHAIR IN GOING OT OF THE HOSPITAL. PATIENT WENT OUT WALKING ACCOMPANIED BY SON (LOIDA). Addendum: 12/22/17 at 1446 by EMMA TAYLOR RN PHOTOS NOT TAKEN DUE TO PATIENT SKIN INTACT.
== END 2017-12-22 13:30 | disposition home or self-care (01) | DRG 682 ==
LOC: ER 19:32 → TELE-TD 23:21 → MEDSG1 12-22 09:01
DX: N17.0 Acute kidney failure with tubular necrosis (principal); I50.33 Acute on chronic diastolic (congestive) heart failure; I13.0 Hypertensive heart and chronic kidney disease with heart failure and stage 1 through stage 4 chronic kidney disease, or unspecified chronic kidney disease; I16.0 Hypertensive urgency; I11.0 Hypertensive heart disease with heart failure; K21.9 Gastro-esophageal reflux disease without esophagitis; I25.10 Atherosclerotic heart disease of native coronary artery without angina pectoris; E11.9 Type 2 diabetes mellitus without complications; M81.0 Age-related osteoporosis without current pathological fracture; E11.22 Type 2 diabetes mellitus with diabetic chronic kidney disease; E88.81 Metabolic syndrome and other insulin resistance; N18.9 Chronic kidney disease, unspecified; E87.5 Hyperkalemia; E78.5 Hyperlipidemia, unspecified; E66.8 Other obesity; Z68.28 Body mass index [BMI] 28.0-28.9, adult; E11.65 Type 2 diabetes mellitus with hyperglycemia; Z79.82 Long term (current) use of aspirin
CPT/HCPCS: 36415; 70450-TC; 71045-TC; 80048-TC; 80061-TC; 80076-TC; 82962-TC; 83735-TC; 83880; 84100-TC; 84443-TC; 84484-TC; 85025-TC; 85730-TC; 87081-TC; 93307-TC; A4606; G0378; J0360; J1815; J1940; J2405; J3475; Z7610